=== PATIENT | female | born 1960 | race Caucasian/White ===

== ENCOUNTER → 2016-09-19 | Outpatient (CLI) | payer OTHER ==
[2016-09-19 11:08] LABS: WHITE BLOOD COUNT 9.76 10^3/uL (4.8-10.8)
[2016-09-19 11:09] LABS: BASOPHILS % (AUTO) 0.5 % (0-1); EOSINOPHILS % (AUTO) 3.2 % (0-8); HEMOGLOBIN 14.9 g/dL (12.0-16.0); IMM GRAN % (AUTO) 0.3 % (0-5); LYMPHOCYTES # (AUTO) 3.18 10*3/uL; LYMPHOCYTES % (AUTO) 32.6 % (10-50); MEAN CORPUSCULAR HEMOGLOBIN 26.9 PG (27-31); MEAN CORPUSCULAR HGB CONC 33.9 g/dL (33-37); MONOCYTES # (AUTO) 0.74 10*3/UL (0.3-0.8); MONOCYTES % (AUTO) 7.6 % (5-15); NEUTROPHILS # (AUTO) 5.45 10*3/UL; NEUTROPHILS % (AUTO) 55.8 % (50-80); RDW COEFFICIENT OF VARIATION 19.9 % (11.5-14.5); RED BLOOD COUNT 5.53 10^6/uL (4.20-5.40)
[2016-09-19 11:10] LABS: BASOPHILS # (AUTO) 0.05 10*3/UL; IMM GRAN# (AUTO) 0.03 10*3/UL; PLATELET MORPHOLOGY COMMENT NORMAL MORPHOLOGY (NORM)
== END ==
LOC: MOB LAB 10:15
DX: R71.8 Other abnormality of red blood cells (principal)
CPT/HCPCS: 36415; 85025

== ENCOUNTER 2016-11-10 05:59 | Emergency (ER) | payer OTHER ==
[2016-11-10 06:16] VITALS: RESP 16; TEMP 97.5
[2016-11-10] MEDS ORDERED: KETOROLAC 30 MG/1 ML VIAL IVP ONE (06:24)
[2016-11-10] MEDS ORDERED: Sodium Chloride 0.9% 1,000 ML PRIMARY IV ONE (06:24)
[2016-11-10] MEDS ORDERED: DEXAMETHASONE PF 10 MG/1 ML VIAL IV ONE (06:24)
[2016-11-10] MEDS ORDERED: Magnesium Sulfate 2gm (Premix) 2 GM in Premix 1 BAG IV ONE (06:24)
[2016-11-10] MEDS ORDERED: Prochlorperazine Edisylate Inj 10mg/2ml vial IVP ONE (06:24)
[2016-11-10] MEDS ORDERED: diphenhydrAMINE 50 MG/1 ML VIAL IVP ONE (06:24)
[2016-11-10 06:31] LABS: BASOPHILS # (AUTO) 0.02 10*3/UL; BASOPHILS % (AUTO) 0.2 % (0-1); EOSINOPHILS % (AUTO) 0 % (0-8); HEMATOCRIT 43.5 % (37.0-47.0); IMM GRAN % (AUTO) 0.2 % (0-5); IMM GRAN# (AUTO) 0.03 10*3/UL; LYMPHOCYTES # (AUTO) 1.58 10*3/uL; LYMPHOCYTES % (AUTO) 12.6 % (10-50); MEAN CORPUSCULAR HGB CONC 34.5 g/dL (33-37); MONOCYTES # (AUTO) 0.41 10*3/UL (0.3-0.8); MONOCYTES % (AUTO) 3.3 % (5-15); NEUTROPHILS # (AUTO) 10.47 10*3/UL; NEUTROPHILS % (AUTO) 83.7 % (50-80); RDW COEFFICIENT OF VARIATION 15.5 % (11.5-14.5); RED BLOOD COUNT 5.17 10^6/uL (4.20-5.40); WHITE BLOOD COUNT 12.51 10^3/uL (4.8-10.8)
--- NOTE | 2016-11-10 06:31 | PDOC ---
Headache HPI - General Chief Complaint: Headache Stated Complaint: "Migraine" Date Seen by Provider: 11/10/16 Time Seen by Provider: 06:25 Source: POSITIVE: Patient Exam Limitations: POSITIVE: No limitations Nurse's Notes Reviewed & Considered: Yes - History of Present Illness Initial Comments: Patient comes in today chief complaint of headache. Patient with a history of migraine headaches comes in today with headache that is minimally ongoing since Sunday. She saw her primary care physician on Sunday and was given a shot at all and initially it began to improve area yesterday she saw a foot doctor and her migraine began to worsen again. She has photophobia, nausea, vomiting, and diarrhea. She denies fever but has had chills and sweats. Body Location Affected: REPORTS: Head Timing: REPORTS: Constant Duration: <1 week Severity: Severe Quality: REPORTS: "Pain", Throbbing Associated Symptoms: REPORTS: Chills, Sweating, Nausea, Vomiting Exacerbated by: REPORTS: Light, Noise, Movement Any Prior Injuries Related to Current Complaint?: No - Patient Home Medications Home Medications: Home Medications Cranberry Pills 1 tab PO DAILY 10/05/09 Cholecalciferol (Vitamin D3) [Vitamin D3] 2 cap PO DAILY cap 09/30/13 Ondansetron [Zofran Odt] 8 mg PO Q8H #10 tab 11/04/14 Esomeprazole Magnesium [Nexium] 1 tab PO BID #180 cap 02/23/15 Albuterol Sulfate [Proventil Hfa] 1 - 2 puff INH Q4-6H #3 puff 01/26/16 Metoprolol Succinate 1 tab PO QD #90 tab 01/26/16 Tizanidine HCl 1 tab PO Q6H #360 tab 01/26/16 Promethazine HCl 1 tab PO DAILY PRN #90 tab 04/26/16 Gabapentin [Neurontin] 1 - 2 cap PO QHS PRN #180 cap 08/21/16 Sumatriptan Succinate [Imitrex] 1 - 2 tab PO q 2 hours #36 tab 09/11/16 Betamethasone/Propylene Glyc [Betamethasone Dp Aug 0.05% Oin] 45 gm TP PRN #1 each 09/19/16 Iron 1 tab PO BID #60 tab 09/20/16 Baclofen 2 tab PO QHS #180 tab 10/16/16 Hydrochlorothiazide 1 tab PO QD #90 tab 10/16/16 Venlafaxine HCl [Venlafaxine Hcl Er] 1 cap PO QD #90 cap 10/16/16 Hydrocodone Bit/Acetaminophen [[place] 5-325 Tablet] 1 tab PO q4h prn #30 tab 04/19 - Patient Allergies Allergies/Adverse Reactions: Allergies Allergy/AdvReac Type Severity Reaction Status Date / Time No Known Allergies Allergy Verified 11/10/16 06:06 Past Medical History - heen HEENT History: Denies History Cardiovascular History: Denies History Respiratory History: Denies History Gastrointestinal History: Denies History Genitourinary History: Denies History Endocrine History: Denies History Musculoskeletal History: Denies History Prosthesis or Implant: No Neurological History: Denies History Blood Disorders: Denies History History of Sexually Transmitted Diseases: No Female Reproductive History: Hysterectomy Cancer History: Denies History In Past Year Been Physically Harmed or Verbally Threatened: No History of MDRO: No History of Other Communicable Diseases: No Tobacco Use: Never Smoker Alcohol Use: Occasionally Substance Use Type: None ROS - Limitations ROS Limitations: No Limitations Constitution: REPORTS: Chills, Diaphoresis Cardiovascular: REPORTS: Denies Cardiac Symptoms Respiratory: REPORTS: Cough Non Productive Neurological: REPORTS: Headache Gastrointestinal: REPORTS: Nausea, Vomitting Endocrine: REPORTS: Denies Symptoms Musculoskeletal: REPORTS: Denies MS Symptoms Genitourinary: REPORTS: Denies Symptoms Eyes: REPORTS: Eye Pain ENT: REPORTS: Denies Symptoms Skin: REPORTS: Denies Skin Symptoms Lympathic: REPORTS: Denies Lympathic Symptoms Immunologic: POSITIVE: Denies Symptoms Psychiatric: POSITIVE: Denies Psych Symptoms Headache Exam - General Appearance General Appearance: POSITIVE: Alert, Cooperative, No Evidence of Trauma, Moderate Distress - HEENT Head / Face: POSITIVE: Atraumatic, Normal Inspection, No Facial Swelling Eyes: POSITIVE: Inspection Normal, PERRL, EOM's Intact, Eyelids Uninjured, Conjunctivae Uninjured, Sclera Normal Ears: POSITIVE: Ears Normal Inspection, Auricle Normal Nose: POSITIVE: Inspection Normal, No Apparent Trauma, Nares Normal, No CSF Leak Oropharynx: POSITIVE: External Inspection Nml, Pharynx Inspect. Nml, Airway Intact, Voice Normal, Moist Mucous Membranes, No Oral Injury, Lips Normal, Gums Normal, No Drooling, No Thrush Dental: POSITIVE: No Dental Injury - Pupil Size Pupil Size: 4 mm: Bilateral - Neck Neck: POSITIVE: Normal Inspection - Respiratory / CVS Respiratory / CVS: POSITIVE: Chest Non-Tender, No Respiratory Distress, Heart Sounds Normal, Regular Rate/Rhythm, Breath Sounds Normal - Abdomen Abdomen: Soft: (All Quadrants), Normal Bowel Sounds: (All Quadrants), Denies Tenderness: (All Quadrants) - Skin Skin: POSITIVE: Intact, Normal Palpation - Extremities Extremity: Non-Tender: (All Extremities), Normal ROM: (All Extremities), Normal Inspection: (All Extremities) - Neuro / Psych Higher Functions: POSITIVE: Alert, Oriented x3, Normal Speech, Mood Appropriate , Affect Appropriate Cranial Nerves: POSITIVE: Normal As Tested, No Evidence of Acute CVA Cerebellar: POSITIVE: Normal As Tested Sensorimotor: POSITIVE: No Motor Deficits, No Sensory Deficits Reflexes: Patellar (R): 4+, Patellar (L): 4+, Radial (R): 3+, Radial (L): 3+ Headache Progress - Results Reviewed by me Lab Results Reviewed: Yes Lab Results:: Laboratory Results 11/10/16 Range/Units 05:55 WBC 12.51 H (4.8-10.8) 10^3/uL RBC 5.17 (4.20-5.40) 10^6/uL Hgb 15.0 (12.0-16.0) g/dL Hct 43.5 (37.0-47.0) % MCV 84.1 (81-99) FL MCH 29.0 (27-31) PG MCHC 34.5 (33-37) g/dL RDW Std Deviation 46.9 (39-50) fL RDW Coeff of Deb 15.5 H (11.5-14.5) % Plt Count 309 (140-350) 10*3/uL MPV 10.0 (7.4-12.2) FL Immature Gran % (Auto) 0.2 (0-5) % Neut % (Auto) 83.7 H (50-80) % Lymph % (Auto) 12.6 (10-50) % [place] % (Auto) 3.3 L (5-15) % Eos % (Auto) 0 (0-8) % Baso % (Auto) 0.2 (0-1) % Immature Gran # (Auto) 0.03 10*3/UL Neut # (Auto) 10.47 10*3/UL Lymph # (Auto) 1.58 10*3/uL [place] # (Auto) 0.41 (0.3-0.8) 10*3/UL Eos # (Auto) 0 10*3/UL Baso # (Auto) 0.02 10*3/UL WBC Morphology Comment Normal morphology (NORM) Plt Morphology Comment Normal morphology (NORM) RBC Morph Comment Normal morphology (NORM) Sodium 136 (135-145) meq/L Potassium 4.3 (3.8-5.2) meq/L Chloride 98 (98-112) meq/L Carbon Dioxide 26 (23-33) meq/L Anion Gap 12 (5-20) BUN 20 (7-22) mg/dL Creatinine 0.7 (0.50-1.20) mg/dL Estimated GFR > 60 (>60 ml/min/1.73m(2)) BUN/Creatinine Ratio 28.57 H (6-20) Glucose 280 H (78-110) mg/dL Calculated Osmolality 294.0 H (267-292) mOsm/kg Calcium 9.8 (8.7-10.7) mg/dL Magnesium 1.8 (1.6-2.4) mg/dL Total Bilirubin 1.0 (0.3-1.2) mg/dL AST 87 H (8-39) IU/L ALT 81 H (9-52) IU/L Alkaline Phosphatase 150 H (38-126) IU/L Total Protein 8.0 (6.1-8.0) g/dL Albumin 4.2 (3.5-4.8) g/dL Globulin 3.8 (2.50-4.10) g/dL Albumin/Globulin Ratio 1.10 L (1.3-2.0) mg/g TSH 0.668 (0.2700-4.2000) uIU/mL - Patient's Progress Pain Medication Addressed: POSITIVE: Yes Re-Examine Time:: 07:31 Status: POSITIVE: Improved MDM / ED Course: Patient was examined, an IV started, blood drawn and sent to the lab for studies. ER course: Patient received a liter of normal saline, dexamethasone, Toradol, Benadryl, magnesium, Compazine. Her headache significantly improved. Findings: Glucose is elevated at 280. White count is elevated just over 12. Hemoglobin A1c is pending. Assessment: Migraine headache improved. New-onset diabetes. Plan: Discharge home, follow up later today with primary care physician. - Consult Counseled: POSITIVE: Patient, RE: Lab Results, RE: DX, RE: Need for F/U Patient Care Time - Estimated PCT Patient Care Time (In Minutes): 30 Vital Signs - Recent Vital Signs Vital Signs: Vital Signs (Last 8 hours) Temp Pulse Resp BP Pulse Ox 11/10/16 06:08 97.5 F 86 16 132/100 92 - VS Reviewed Vital Signs Reviewed: Yes Discharge Clinical Impression: Migraine, New onset type 2 diabetes mellitus Condition: Stable Patient Instructions Given at Discharge: Migraine Headache (ED), Type 2 Diabetes in Adults (ED)
[2016-11-10 06:36] LABS: ASPARTATE AMINO TRANSFERASE 87 IU/L (8-39); BLOOD UREA NITROGEN 20 mg/dL (7-22); BUN/CREATININE RATIO 28.57 (6-20); CALCIUM 9.8 mg/dL (8.7-10.7); CHLORIDE 98 meq/L (98-112); CREATININE 0.7 mg/dL (0.50-1.20); EST GLOMERULAR FILTRATION > 60 (>60 ml/min/1.73m(2)); GLUCOSE 280 mg/dL (78-110); MAGNESIUM 1.8 mg/dL (1.6-2.4); PLATELET MORPHOLOGY COMMENT NORMAL MORPHOLOGY (NORM); POTASSIUM 4.3 meq/L (3.8-5.2); SODIUM 136 meq/L (135-145)
[2016-11-10 07:43] LABS: HEMOGLOBIN A1C 8.47 % (4.2-6.0); MEAN BLOOD GLUCOSE (CALC) 196.051 mg/dL
== END 2016-11-10 07:50 | disposition home or self-care (01) ==
LOC: ER 05:59
DX: G43.009 Migraine without aura, not intractable, without status migrainosus (principal); R11.2 Nausea with vomiting, unspecified; R19.7 Diarrhea, unspecified; E11.9 Type 2 diabetes mellitus without complications
CPT/HCPCS: 80053; 83036; 83735; 84443; 85025; 96361; 96365; 96375; 99282; 99283; J1200; J1885; J0780; J1100; J3475; J7030

== ENCOUNTER → 2016-11-16 | Outpatient (CLI) | payer OTHER ==
--- NOTE | 2016-11-16 09:28 | DI ---
MRI CERVICAL SPINE SCAN, 11/16/2016 7:57 AM: Clinical History: C8 nerve root cervical radiculopathy. Previous Exam: None. Sequences: Sagittal T1and T2 weighted. Axial T2 PLUS and FE 3D DUAL. Coronal T1 scans through the upp er cervical spine. The vertebral bodies are of normal height and size. There is severe C5-6 disc space narrowing with mo derate narrowing at C4-5 and C6-7. All cervical disc spaces show desiccation change. Both cerebellar tonsils descend below the foramen magnum and this is demonstrated on the coronal slices through the u pper cervical spine. The right cerebellar tonsil descends approximately 5-6 mm below the foramen magn um in the left cerebellar tonsil descends about 3 mm below the foramen magnum. This pattern constitut es an Arnold-Chiari type I malformation. The cervical cord is normal. The C2-3 and C3-4 disc spaces a re normal. C4-5 has a minimally bulging but not herniated disc without canal or neural foraminal sten osis. C5-6 has a more prominent bulging but not herniated disc. There is no canal stenosis but there is bilateral neural foraminal stenosis. The C6-7 through T4-5 disc spaces are normal. Readin. There are bulging but not herniated discs without canal stenosis at C4-5 and C5-6. There is no ne ural foraminal stenosis at C4-5 and there is mild bilateral neural foraminal stenosis at C5-6. 2. The disc spaces at C2-3, C3-4, and from C6-7 through T4-5 are normal. 3. There is an Arnold-Chiari type I malformation. The right cerebellar tonsil descends 5-6 mm and th e left cerebellar tonsil descends 3 mm below the foramen magnum.
== END ==
LOC: MRI 07:50
DX: M54.12 Radiculopathy, cervical region (principal); M47.22 Other spondylosis with radiculopathy, cervical region; G93.5 Compression of brain
CPT/HCPCS: 72141

== ENCOUNTER → 2016-12-21 | Outpatient (CLI) | payer OTHER ==
--- NOTE | 2016-12-21 21:23 | DI ---
CERVICAL SPINE SERIES, 12/21/2016 11:19 AM: Clinical History: Cervical pain. Previous Exam: 04/26/2011. Upright AP and lateral and upright lateral flexion and extension views are submitted. The vertebral b odies are normal in height and size. Disc space narrowing is present at C4-5 through C6-7. In the anabel tral position, there is posterior subluxation of C5 on C6 by 1-2 mm. No instability is noted at C5-6 with flexion and extension. However, with extension there is posterior subluxation of C4 on C5 by 1-2 mm and this disc space has normal alignment when in flexion and in the neutral position indicating m otion. The lateral masses are normal. C1 articulates normally with C2 and the occiput. Prevertebral s oft tissue planes are normal. Readin. There is disc space narrowing at C4-5. With extension there is posterior subluxation of C4 on C5 by 1-2 mm indicating motion at this level. 2. There is disc space narrowing at C5-6 and C6-7 with posterior subluxation of C5 on C6 by 1-2 mm. There is no motion noted at C5-6 with flexion and extension.
== END ==
LOC: RAD 12:43
PROVIDERS: ATTEND Neurological Surgery
DX: M54.2 Cervicalgia (principal); M48.02 Spinal stenosis, cervical region; M43.5X2 Other recurrent vertebral dislocation, cervical region
CPT/HCPCS: 72050

== ENCOUNTER → 2017-01-17 | Outpatient (CLI) | payer OTHER ==
[2017-01-17 08:17] LABS: CALCIUM 9.3 mg/dL (8.7-10.7); EST GLOMERULAR FILTRATION > 60 (>60 ml/min/1.73m(2))
--- NOTE | 2017-01-17 12:09 | DI ---
MRI BRAIN W/WO DILLON,01/17/2017 7:53 AM: Clinical History: Intractable chronic migraines. Previous Exam: None at this facility. Findings: Multiplanar MR images are obtained through the brain with and without contrast. Ventricles and other CSF containing spaces are normal and symmetric. There are multiple scattered are as of increased T2 and FLAIR signal within the periventricular and subcortical white matter. There is no evidence of abnormally restricted diffusion. The intraorbital structures and paranasal sinuses are unremarkable. Post enhanced images demonstrate no evidence of abnormal enhancement. Limited evaluation of the ambler of [place] is unremarkable. Impression: Multiple scattered areas of increased FLAIR and T2 signal most consistent with small vessel ischemic changes.
== END ==
LOC: MRI 07:45
PROVIDERS: ATTEND Psychiatry & Neurology Neurology
DX: G43.719 Chronic migraine without aura, intractable, without status migrainosus (principal); I99.8 Other disorder of circulatory system
CPT/HCPCS: 36415; 70553; 80048

== ENCOUNTER → 2017-03-22 | Outpatient (CLI) | payer OTHER ==
--- NOTE | 2017-03-24 08:58 | DI ---
LEFT FOOT, 03/22/2017 3:15 PM: Clinical History: Left foot pain. Previous Exam: None at this facility. 3 weightbearing views are submitted. There is no acute soft tissue, osseous, or joint abnormality. Reading: Normal left foot exam.
== END ==
LOC: MOB RAD 16:18
PROVIDERS: ATTEND Podiatrist Foot & Ankle Surgery
DX: M79.672 Pain in left foot (principal); M21.6X2 Other acquired deformities of left foot; G57.92 Unspecified mononeuropathy of left lower limb
CPT/HCPCS: 73630

== ENCOUNTER → 2017-04-16 | Outpatient (CLI) | payer OTHER ==
[2017-04-16 14:48] LABS: HEMATOCRIT 46.3 % (37.0-47.0); HEMOGLOBIN 16.4 g/dL (12.0-16.0); MEAN CORPUSCULAR HEMOGLOBIN 30.1 PG (27-31); MEAN CORPUSCULAR HGB CONC 35.4 g/dL (33-37); MEAN CORPUSCULAR VOLUME 85.1 FL (81-99); MEAN PLATELET VOLUME 10.7 FL (7.4-12.2); RED BLOOD COUNT 5.44 10^6/uL (4.20-5.40)
[2017-04-16 14:58] LABS: BUN/CREATININE RATIO 24.61 (6-20); CALCIUM 9.2 mg/dL (8.7-10.7); SERUM ALBUMIN 4.3 g/dL (3.5-4.8)
[2017-04-16 15:07] LABS: BAND NEUTROPHILS % 13 % (0-10); BASOPHILS % (MANUAL) 0 % (0-1); EOSINOPHILS % (MANUAL) 0 % (0-8); LYMPHOCYTES % (MANUAL) 7 % (10-50); MONOCYTES % (MANUAL) 4 % (0-12); NEUTROPHILS % (MANUAL) 76 % (50-80); PLATELET MORPHOLOGY COMMENT NORMAL MORPHOLOGY (NORM); RBC MORPHOLOGY COMMENT NORMAL MORPHOLOGY (NORM); WBC MORPHOLOGY COMMENT NORMAL MORPHOLOGY (NORM)
== END ==
LOC: MOB LAB 14:18
PROVIDERS: ATTEND Physician Assistant Medical
DX: R11.2 Nausea with vomiting, unspecified (principal); R53.81 Other malaise; R10.84 Generalized abdominal pain
CPT/HCPCS: 36415; 80053; 85007; 87088

== ENCOUNTER → 2017-04-18 | Outpatient (CLI) | payer OTHER ==
--- NOTE | 2017-04-18 13:09 | DI ---
History: Cough Comparison: None within the last 5 years Lungs are clear. There is no infiltrate or pleural effusion. Lungs are fully expanded Heart size normal Pulmonary vasculature normal Impression Unremarkable plain film study of the chest.
== END ==
LOC: MOB RAD 12:09
DX: R05 Cough (principal)
CPT/HCPCS: 71020

== ENCOUNTER → 2017-04-20 | Outpatient (CLI) | payer OTHER ==
[2017-04-20 14:25] LABS: BASOPHILS # (AUTO) 0.14 10*3/UL; BASOPHILS % (AUTO) 1.3 % (0-1); EOSINOPHILS % (AUTO) 9.5 % (0-8); HEMATOCRIT 40.1 % (37.0-47.0); HEMOGLOBIN 14.3 g/dL (12.0-16.0); LYMPHOCYTES # (AUTO) 3.31 10*3/uL; MEAN CORPUSCULAR HGB CONC 35.7 g/dL (33-37); MEAN CORPUSCULAR VOLUME 86.8 FL (81-99); MEAN PLATELET VOLUME 10.3 FL (7.4-12.2); MONOCYTES % (AUTO) 7.6 % (5-15); NEUTROPHILS # (AUTO) 5.03 10*3/UL; NEUTROPHILS % (AUTO) 47.6 % (50-80); RED BLOOD COUNT 4.62 10^6/uL (4.20-5.40)
[2017-04-20 14:28] LABS: PLATELET MORPHOLOGY COMMENT NORMAL MORPHOLOGY (NORM); RBC MORPHOLOGY COMMENT NORMAL MORPHOLOGY (NORM); WBC MORPHOLOGY COMMENT NORMAL MORPHOLOGY (NORM)
== END ==
LOC: MOB LAB 13:26
DX: R10.84 Generalized abdominal pain (principal); R05 Cough; R11.2 Nausea with vomiting, unspecified; B99.9 Unspecified infectious disease
CPT/HCPCS: 36415; 85025

== ENCOUNTER → 2017-04-24 | Outpatient (CLI) | payer OTHER ==
[2017-04-24 17:20] LABS: CALCIUM 9.8 mg/dL (8.7-10.7); SERUM ALBUMIN 3.9 g/dL (3.5-4.8)
== END ==
LOC: MOB LAB 15:44
DX: R10.84 Generalized abdominal pain (principal)
CPT/HCPCS: 36415; 80053; 82150; 83690

== ENCOUNTER 2017-04-30 14:45 | Inpatient (IN) ==
[2017-04-30] MEDS: ONDANSETRON 4 MG/2 ML VIAL IVP ONE ×2 (15:18→21:59)
--- NOTE | 2017-04-30 15:20 | PDOC ---
Abdomen/Flank HPI - General Chief Complaint: General Medical Stated Complaint: ill Date Seen by Provider: 04/30/17 Time Seen by Provider: 15:12 Source: POSITIVE: Patient, RN/MD (Dr. Barkley, PCP) Exam Limitations: POSITIVE: No limitations Nurse's Notes Reviewed & Considered: Yes - History of Present Illness Initial Comments: Patient comes in today with a chief complaint of nausea vomiting and diarrhea. I was contacted by the patient's primary care physician, Dr. Barkley, who advised that the patient has had 3 weeks of refractory nausea vomiting and diarrhea. Approximately 3 weeks ago she had findings of elevated bilirubin to 2.5 and elevated creatinine. Recheck of her bilirubin creatinine last week showed a return to more normal numbers. Her LFTs continued to be chronically elevated. Her amylase was normal, lipase was 325. History of chronic diarrhea however she just finished antibiotics for strep and a cough. Patient is diabetic, and Dr. Barkley recently stopped several of her meds including metformin. Presently patient denies any headache, no chest pain or shortness of breath, she does have nausea vomiting and diarrhea. Denies any hematuria or dysuria, no rashes. Patient states she has had fever 201.2 with associated chills and sweats. Patient arrived at Dr. Barkley's office this afternoon for her scheduled appointment and asked to be sent to the emergency department because she felt so bad. Body Location Affected: REPORTS: Abdomen Timing: REPORTS: Constant Duration: >1 week (Approximately 3 weeks) Severity: Moderate Quality: REPORTS: Cramping, "Pain" Abdominal Pain Onset Location: REPORTS: Generalized abdomen Abdominal Pain Radiation: REPORTS: RUQ, Epigastric Context: REPORTS: None Modifying Factors: improves with: Nothing Associated Symptoms: REPORTS: Chills, Diaphoresis, Fever Similar Symptoms Previously: Yes Recent Care Received: REPORTS: Recently Seen Any Prior Injuries Related to Current Complaint?: No - Patient Home Medications Home Medications: Home Medications Cranberry Pills 1 tab PO DAILY 10/05/09 Cholecalciferol (Vitamin D3) [Vitamin D3] 2 cap PO DAILY cap 09/30/13 Ondansetron [Zofran Odt] 8 mg PO Q8H #10 tab 11/04/14 Esomeprazole Magnesium [Nexium] 1 tab PO BID #180 cap 02/23/15 Albuterol Sulfate [Proventil Hfa] 1 - 2 puff INH Q4-6H #3 puff 05/25/16 Metoprolol Succinate 1 tab PO QD #90 tab 01/26/16 Sumatriptan Succinate [Imitrex] 1 - 2 tab PO q 2 hours #36 tab 09/11/16 Iron 1 tab PO BID #60 tab 09/20/16 Blood Sugar Diagnostic [Freestyle Lite Strips] 1 strip IN QD #50 strip 11/16/16 Blood-Glucose Meter [Freestyle Lite Meter] 1 each ONCE #1 unit 11/16/16 Lancets [Freestyle Lancets] 1 each MC QD #50 each 11/16/16 Betamethasone/Propylene Glyc [Betamethasone Dp Aug 0.05% Oin] 45 gm TP PRN #1 each 01/08/17 Hydrochlorothiazide 1 tab PO QD #90 tab 02/08/17 Promethazine HCl 1 tab PO QD PRN #45 tab 02/08/17 Tizanidine HCl 1 tab PO Q6H #360 tab 02/08/17 Venlafaxine HCl [Venlafaxine Hcl Er] 1 cap PO QD #90 cap 02/08/17 Gabapentin [Neurontin] 5 cap PO QHS #150 cap 02/20/17 Hydrocodone Bit/Acetaminophen [[place] 5-325 Tablet] 1 tab PO q4h prn #30 tab Baclofen 2 tab PO QHS #180 tab 04/04/17 Cefuroxime Axetil [Cefuroxime] 500 mg PO BID #20 tab 04/16/17 Ondansetron [Zofran Odt] 8 mg PO TID #9 tab 04/16/17 Albuterol Neb Soln 0.083% 1 vial INH Q4-6HRSPRN #120 vial 04/20/17 Guaifenesin/Codeine Phos [Cheratussin Ac Syrup] 10 ml PO Q4-6HRSPRN #120 ml predniSONE Tab [Deltasone Tab] 2 tab PO DAILY #10 tab 04/20/17 predniSONE Tab [Deltasone Tab] 0.5 - 1 tab PO QD #14 tab 04/25/17 - Patient Allergies Allergies/Adverse Reactions: Allergies Allergy/AdvReac Type Severity Reaction Status Date / Time No Known Allergies Allergy Verified 04/30/17 15:32 Past Medical History - heen HEENT History: Denies History Cardiovascular History: Denies History Respiratory History: Denies History Gastrointestinal History: Denies History Genitourinary History: Denies History Endocrine History: Type 2 Diabetes (oral) Musculoskeletal History: Denies History Prosthesis or Implant: No Neurological History: Denies History Blood Disorders: Denies History Psychiatric History: Denies History History of Sexually Transmitted Diseases: No Cancer History: Denies History In Past Year Been Physically Harmed or Verbally Threatened: No History of MDRO: No History of Other Communicable Diseases: No Tobacco Use: Never Smoker Alcohol Use: Occasionally Substance Use Type: None Previous Surgical History: Yes Type / Date of Surgery: hysterectomy in 1981, lapchole. Anesthesia Reactions: No Significant Family History: No pertinent family hx ROS - Limitations ROS Limitations: No Limitations Constitution: REPORTS: Chills, Fever, Diaphoresis Cardiovascular: REPORTS: Denies Cardiac Symptoms Respiratory: REPORTS: Denies Resp Symptoms Neurological: REPORTS: Denies Neuro Symptoms Gastrointestinal: REPORTS: Abdominal Pain, Nausea, Vomitting, Diarrhea Endocrine: REPORTS: Fatigue, Elevated Glucose Musculoskeletal: REPORTS: Denies MS Symptoms Genitourinary: REPORTS: Denies Symptoms Eyes: REPORTS: Denies Symptoms ENT: REPORTS: Denies Symptoms Skin: REPORTS: Denies Skin Symptoms Lympathic: REPORTS: Denies Lympathic Symptoms Immunologic: POSITIVE: Denies Symptoms Psychiatric: POSITIVE: Denies Psych Symptoms Abdominal/Flank Pain PE - General Appearance General Appearance: POSITIVE: Alert, Cooperative, No Evidence of Trauma, Moderate Distress - HEENT HEENT: POSITIVE: Head Inspection Nml, Eyes Inspection Nml, Ears Inspection Nml, Nose Inspection Nml, Oral/Dental Inspect. Nml, Pharynx Inspect. Nml, PERRL, EOMI - Neck Neck: POSITIVE: Normal Inspection, No Apparent Injury - Respiratory Respiratory: POSITIVE: No Respiratory Distress, Breath Sounds Normal, Chest Non- Tender - Cardiovascular Cardiovascular: POSITIVE: Heart Sounds Normal, Equal Pulses, Strong Pulses, Tachycardia - Chest Chest: POSITIVE: Non Tender - Abdomen Abdomen: Soft: (All Quadrants), Normal Bowel Sounds: (All Quadrants), Tenderness Noted: (RUQ), (LUQ), Distention: (All Quadrants), Guarding: (RUQ) - Back Back: POSITIVE: Normal Inspection - Skin Skin: POSITIVE: Intact, Normal For Race, Warm, Dry, No Rash - Extremities Extremity: Non-Tender: (All Extremities), Normal ROM: (All Extremities), Normal Inspection: (All Extremities), Pelvis Stable: (All Extremities) - Neurological Neurological: POSITIVE: Oriented X3, global marketing specialist Normal As Tested, Motor Normal, Sensation Normal, 5, 6 - Psychological Psychiatric: POSITIVE: Affect Appropriate, Mood Appropriate Abdomen Progress - Results Reviewed by me Xrays/CTs/US Reviewed by me: Yes Discussed with Radiologist: Yes Lab Results Reviewed: Yes Lab Results:: Laboratory Results 04/30/17 Range/Units 15:20 WBC 14.78 H (4.8-10.8) 10^3/uL RBC 5.52 H (4.20-5.40) 10^6/uL Hgb 16.3 H (12.0-16.0) g/dL Hct 47.8 H (37.0-47.0) % MCV 86.6 (81-99) FL MCH 29.5 (27-31) PG MCHC 34.1 (33-37) g/dL RDW Std Deviation 47.3 (39-50) fL RDW Coeff of Deb 14.9 H (11.5-14.5) % Plt Count 360 H (140-350) 10*3/uL MPV 9.9 (7.4-12.2) FL Immature Gran % (Auto) 0.4 (0-5) % Neut % (Auto) 85.6 H (50-80) % Lymph % (Auto) 11.0 (10-50) % [place] % (Auto) 2.6 L (5-15) % Eos % (Auto) 0.1 (0-8) % Baso % (Auto) 0.3 (0-1) % Immature Gran # (Auto) 0.06 10*3/UL Neut # (Auto) 12.65 10*3/UL Lymph # (Auto) 1.62 10*3/uL [place] # (Auto) 0.39 (0.3-0.8) 10*3/UL Eos # (Auto) 0.02 10*3/UL Baso # (Auto) 0.04 10*3/UL WBC Morphology Comment Normal morphology (NORM) Plt Morphology Comment Normal morphology (NORM) RBC Morph Comment Normal morphology (NORM) Sodium 134 L (135-145) meq/L Potassium 4.5 (3.8-5.2) meq/L Chloride 97 L (98-112) meq/L Carbon Dioxide 24 (23-33) meq/L Anion Gap 13 (5-20) BUN 19 (7-22) mg/dL Creatinine 0.9 (0.50-1.20) mg/dL Estimated GFR > 60 (>60 ml/min/1.73m(2)) BUN/Creatinine Ratio 21.11 H (6-20) Glucose 353 H (78-110) mg/dL Calculated Osmolality 293.0 H (267-292) mOsm/kg Calcium 10.0 (8.7-10.7) mg/dL Magnesium 2.2 (1.6-2.4) mg/dL Total Bilirubin 0.9 (0.3-1.2) mg/dL AST 51 H (8-39) IU/L ALT 119 H (9-52) IU/L Alkaline Phosphatase 133 H (38-126) IU/L C-Reactive Protein 1.5 H (0.0-0.9) mg/dL Total Protein 7.7 (6.1-8.0) g/dL Albumin 4.4 (3.5-4.8) g/dL Globulin 3.4 (2.50-4.10) g/dL Albumin/Globulin Ratio 1.20 L (1.3-2.0) mg/g Amylase 80 (30-110) U/L Lipase 387 H (23-300) IU/L - Patient's Progress Re-examine Time: 16:53 Status: POSITIVE: Improved - Consult Consult (If Yes, Name of Consulting MD & Time Called): Yes (Dr. Huff, 16:52) Consulting MD will see pt:: POSITIVE: [facility] [place] Admit Counseled: POSITIVE: Patient, RE: Lab Results, RE: Radiology Results, RE: DX Patient Care Time - Estimated PCT Patient Care Time (In Minutes): 60 Vital Signs - Recent Vital Signs Vital Signs: Vital Signs (Last 8 hours) Temp Pulse Resp BP Pulse Ox 04/30/17 14:45 96.8 F 82 16 129/92 93 - VS Reviewed Vital Signs Reviewed: Yes Discharge Clinical Impression: Refractory nausea and vomiting Discharge Disposition: Admit to Inpatient Condition: Stable Date Decision to Admit to Inpatient: 04/30/17 Time Decision to Admit to Inpatient: 16:54
[2017-04-30 15:26] LABS: BASOPHILS # (AUTO) 0.04 10*3/UL; BASOPHILS % (AUTO) 0.3 % (0-1); EOSINOPHILS # (AUTO) 0.02 10*3/UL; EOSINOPHILS % (AUTO) 0.1 % (0-8); Hematocrit [HCT] 47.8 % (37.0-47.0); Hemoglobin [HGB] 16.3 g/dL (12.0-16.0); LYMPHOCYTES # (AUTO) 1.62 10*3/uL; MEAN CORPUSCULAR HEMOGLOBIN 29.5 PG (27-31); MEAN CORPUSCULAR HGB CONC 34.1 g/dL (33-37); MEAN CORPUSCULAR VOLUME 86.6 FL (81-99); MEAN PLATELET VOLUME 9.9 FL (7.4-12.2); MONOCYTES # (AUTO) 0.39 10*3/UL (0.3-0.8); MONOCYTES % (AUTO) 2.6 % (5-15); NEUTROPHILS # (AUTO) 12.65 10*3/UL; NEUTROPHILS % (AUTO) 85.6 % (50-80); RED BLOOD COUNT 5.52 10^6/uL (4.20-5.40)
[2017-04-30] MEDS: MORPHINE SULFATE 4 MG/1 ML IVP ONE ×2 (15:27→21:58)
[2017-04-30] MEDS: Sodium Chloride 0.9% 1,000 ML PRIMARY IV ONE ×3 (15:30→23:47)
[2017-04-30 15:35] LABS: PLATELET MORPHOLOGY COMMENT NORMAL MORPHOLOGY (NORM); RBC MORPHOLOGY COMMENT NORMAL MORPHOLOGY (NORM); WBC MORPHOLOGY COMMENT NORMAL MORPHOLOGY (NORM)
[2017-04-30 15:40] LABS: BLOOD UREA NITROGEN 19 mg/dL (7-22); BUN/CREATININE RATIO 21.11 (6-20); MAGNESIUM 2.2 mg/dL (1.6-2.4); SERUM ALBUMIN 4.4 g/dL (3.5-4.8)
[2017-04-30 16:16] LABS: LIPASE 387 IU/L (23-300)
[2017-04-30] MEDS ORDERED: MORPHINE SULFATE 4 MG/1 ML IVP ONE (16:57)
--- NOTE | 2017-04-30 17:02 | EKG ---
[address] [address] Measurements Intervals [place] Rate: 79 P: 42 MI: 146 QRS: 52 QRSD: 99 T: 47 QT: 373 QTc: 408 Interpretive Statements SINUS RHYTHM No previous ECG available for comparison Electronically Signed On 05-01-17 11:45:12 MDT by Charles Marie MD [email or web address]
[2017-04-30 17:04] LABS: BILIRUBIN,URINE NEGATIVE (NEG); CLARITY,URINE CLEAR (CLEAR); COLOR,URINE YELLOW; GLUCOSE, URINE (UA) 500 mg/dL (NEG); NITRATE,URINE NEGATIVE (NEG); OCCULT BLOOD,URINE Trace-intact (NEG); PH,URINE 6.5 (5.0-8.5); PROTEIN,URINE NEGATIVE (NEG); UROBILINOGEN,URINE 0.2 EU/dL (0.2)
[2017-04-30 17:12] LABS: URINE SAMPLE TYPE VOIDED SPECIMEN
--- NOTE | 2017-04-30 17:27 | DI ---
RIGHT UPPER QUADRANT ULTRASOUND, 04/30/2017 3:10 PM: Clinical History: Right upper quadrant pain. Status post cholecystectomy. Previous Exam: None at this facility. Technique: Scans are performed through the right upper quadrant in multiple projections. The patient is status post cholecystectomy. The common bile duct measures 6 mm. Only the body of the pancreas could be visualized and that structure is normal and that portion. There is hepatomegaly and the liver measures 18.4 cm. There is increased echogenicity with decreased through transmission cons istent with fatty infiltration. The right kidney, IVC, and aorta are normal. Readin. Hepatomegaly with fatty infiltration. 2. The right kidney and IVC and aorta are normal. The very limited views of the body of the pancreas are also normal.
[2017-04-30] MEDS ORDERED: LIDOCAINE W/ SODIUM BICARB 0.5 ML SYR SUBD PRN (18:44)
[2017-04-30] MEDS ORDERED: ALBUTEROL SULFATE 2.5 MG/3 ML NEB PRN (18:44)
[2017-04-30] MEDS ORDERED: tiZANidine Tab 4 MG TAB PO SCH (18:44)
[2017-04-30] MEDS ORDERED: HYDROmorphone 2 MG/1 ML IVP PRN (18:44)
--- NOTE | 2017-04-30 18:47 | DI ---
CT ABDOMEN SCAN WITH IV CONTRAST, 04/30/2017 3:10 PM : Clinical History: Abdominal pain. Nausea, vomiting, and diarrhea. Previous Exam: None at this facility. Comparison is made with a previous study from [facility] [place] [place] dated 10/28/2008. Scans are performed from the lower lung bases through the liver and kidneys with IV contrast. 75 ml o f Isovue 300 was injected IV. No oral or rectal contrast was ordered. The lung bases are clear. There is hepatomegaly. Small low-density lesions are present in the inferio r aspect of the right lobe of the liver consistent with small cysts ranging up to 10 mm in diameter. The liver is of lower density than normal consistent with fatty infiltration. The patient is status p ost cholecystectomy and the common bile duct measures 8-9 mm in diameter. There is no abnormality of the spleen, pancreas, and adrenal glands. Both kidneys are normal in size, shape, position and contou r. There is no hydronephrosis or hydroureter. No renal or ureteral calculi are present. There are no abnormal retrocrural or periaortic nodes. No ascites is present. READIN. Hepatomegaly with fatty infiltration. 2. The remainder of the examination is normal. CT PELVIS SCAN WITH IV CONTRAST, 04/30/2017 3:10 PM: Clinical History: See above. Previous Exam: None at this facility. Scans are performed from just superior to the umbilicus to the symphysis pubis with IV contrast. This is the same bolus of contrast used for the CT scans of the abdomen. Scans through the lower abdomen and pelvis show no masses or abnormal fluid collections. There is no adenopathy. The appendix is normal. The mid small bowel has loops filled with fluid and is not dilate d. There are no air-fluid levels. The proximal and distal small bowel are completely decompressed. Th e colon has semisolid stool throughout. No inflammatory bowel changes are noted. There are no hernias . The patient is status post hysterectomy and bilateral salpingo-oophorectomy. READING: Normal CT scan of the pelvis.
[2017-04-30] MEDS ORDERED: SUMAtriptan Tab 25 MG TAB PO PRN (19:00)
[2017-04-30] MEDS ORDERED: HYDROCORTISONE 1% CREAM - 28.35 GM TOPICAL PRN (19:59)
--- NOTE | 2017-04-30 20:17 | PDOC ---
History and Physical - History of Present Illness Date and Time of Service: 04/30/2017, 2014 Chief Complaint: Abdominal pain History of Present Illness: This very pleasant 56-year-old female with a recent diagnosis of diabetes mellitus type II, Ozbtylq-Hwabi-Rzjlx disease, asthma, sleep apnea, GERD, nonalcoholic steatohepatitis, and recent diagnosis of strep pharyngitis. She presents today with a complaint of abdominal pain that is generalized, and similarly a little worse around the left kidney. She states that she's had fevers, continued problems with cough, and intermittent nausea and vomiting. Ultrasound and CT scan of the abdomen and pelvis were done without any significant findings. Patient did feel a little better with pain medications in the emergency room. She states that Phenergan with codeine did help her cough. Despite being on antibiotics, she still has trace hematuria in the urine and she did have some trace proteinuria on urinalysis done at the same time as her strep pharyngitis diagnosis. She's been on close to 10 days of antibiotics, including cefuroxime. Metformin was recently stopped to try and alleviate the symptoms of nausea and vomiting and diarrhea. She's never had anything quite like this before. Thus far she does not feel like she is getting much better although she does deny sore throat tonight. She does have some anterior cervical lymphadenopathy. She complains of increased joint pain as well. She complained of headaches as well. She states her urine is been normal colored and does not appear coffee colored. Past Medical History Medical History: 1. GERD. 2. Hmhmjax-Jglbl-Qsyms disease. 3. Asthma. 4. Nonalcoholic status hepatitis, stage II by biopsy in 2006. 5. Hypothyroidism. 6. Depression. 7. Recently diagnosed diabetes mellitus type II Surgical History: 1. History of January 2005. 2. Bilateral subconjunctival oophorectomy in 2010. 3. Tonsillectomy. 4. Cholecystectomy in 2010. 5. Sinus surgery 2. 6. Right foot nerve release. 7. Hold for biopsy done in 2008. Subacute spongiotic dermatitis. Pertinent Family History: Significant for diabetes and pancreatic cancer. Past Social History: , lives in [place]. Has 2 children. Does not smoke personally but admits to secondhand smoke exposure. No alcohol abuse. Tobacco Use: Never Smoker Substance Use Type: None Alcohol Use: Rarely Medication / Allergies Home Medications: Home Medications Medication Instructions Recorded Confirmed Type Cranberry Pills 1 tab PO DAILY 10/05/09 04/30/17 History Cholecalciferol (Vitamin D3) 2 cap PO DAILY cap 09/30/13 04/30/17 History [Vitamin D3] Albuterol Sulfate [Proventil Hfa] 1 - 2 puff INH Q4-6H #3 puff 01/26/16 Clinic Metoprolol Succinate 1 tab PO QD #90 tab 01/26/16 04/30/17 Clinic Sumatriptan Succinate [Imitrex] 1 - 2 tab PO q 2 hours #36 tab 09/11/16 Clinic Iron 1 tab PO BID #60 tab 09/20/16 04/30/17 Clinic Blood Sugar Diagnostic [Freestyle 1 strip IN QD #50 strip 11/16/16 04/30/17 Clinic Lite Strips] Blood-Glucose Meter [Freestyle 1 each MC ONCE #1 unit 11/16/16 04/30/17 Clinic Lite Meter] Lancets [Freestyle Lancets] 1 each MC QD #50 each 11/16/16 04/30/17 Clinic Betamethasone/Propylene Glyc 45 gm TP PRN #1 each 01/08/17 04/30/17 Clinic [Betamethasone Dp Aug 0.05% Oin] Hydrochlorothiazide 1 tab PO QD #90 tab 02/08/17 04/30/17 Clinic Promethazine HCl 1 tab PO QD PRN #45 tab 02/08/17 04/30/17 Clinic Tizanidine HCl 1 tab PO Q6H #360 tab 02/08/17 04/30/17 Clinic Venlafaxine HCl [Venlafaxine Hcl 1 cap PO QD #90 cap 02/08/17 Clinic Er] Gabapentin [Neurontin] 5 cap PO QHS #150 cap 02/20/17 04/30/17 Clinic Hydrocodone Bit/Acetaminophen 1 tab PO q4h prn #30 tab 02/20/17 04/30/17 Clinic [[place] 5-325 Tablet] Baclofen 2 tab PO QHS #180 tab 04/04/17 04/30/17 Clinic Ondansetron [Zofran Odt] 8 mg PO TID #9 tab 04/16/17 04/30/17 Clinic Albuterol Neb Soln 0.083% 1 vial INH Q4-6HRSPRN #120 vial 04/20/17 04/30/17 Clinic predniSONE Tab [Deltasone Tab] 0.5 - 1 tab PO QD #14 tab 04/25/17 Clinic Esomeprazole Magnesium [Nexium] 40 mg PO BEDTIME 04/30/17 04/30/17 History Omeprazole Magnesium [Prilosec Otc] 40 mg PO DAILY 04/30/17 04/30/17 History Allergies/Adverse Reactions: Allergies Allergy/AdvReac Type Severity Reaction Status Date / Time No Known Allergies Allergy Verified 04/30/17 15:32 Review of Systems - Review of Systems All Systems: Reviewed & No Additional Complaints Except as Stated (I did a 12 point review of systems and was negative other than that discussed in the history of present illness and that noted below.) - Constitutional Constitutional: REPORTS: Fever/Chills, Night Sweats, Diffuse Myalgias - Mouth/Throat Mouth/Throat Exam: REPORTS: Dysphagia - Respiratory Respiratory: REPORTS: Cough - Cardiovascular Cardiovascular: REPORTS: Negative System Review - Gastrointestinal Gastrointestinal / Abdominal: REPORTS: Nausea, Vomiting, Abdominal Pain - Genitourinary Genitourinary: REPORTS: Negative System Review - Gynecological : 7 Para: 2 Abortions.: 5 (spontaneous) - Musculoskeletal Musculoskeletal: REPORTS: Joint Pain - Feet, Other (Chronic joint pain. 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 Exam - Vitals Vital Signs: Vital Signs Temperature 97.2 F Temperature Source Temporal Artery Scan Pulse Rate [Pulse Oximeter 73 Right] Respiratory Rate 18 Blood Pressure [Left Arm] 151/88 Pulse Ox 95 Oxygen Delivery Method Room Air Height 5 ft 5 in Weight 196 lb 6.4 oz - General General Appearance: POSITIVE: No Acute Distress, Cooperative - Head Head Exam: POSITIVE: Normal Inspection, Normocephalic, Atraumatic - Eye Eye Exam: POSITIVE: No Scleral Icterus - ENT ENT Exam: POSITIVE: Mucous Membranes Dry - Neck Neck Exam: POSITIVE: Tenderness (On anterior cervical lymphadenopathy), Lymphadenopathy, No Thyromegaly - Respiratory Respiratory Exam: POSITIVE: Clear to Auscultation - Bilaterally, Breathing Non Labored, Normal to Percussion and Palpation - Cardiovascular Cardiovascular Exam: POSITIVE: RRR, No Murmur, No Clicks, No Gallops, No Rubs, No JVD - GI/Abdominal GI/Abdominal Exam: POSITIVE: Normal Bowel Sounds, Non Tender, Non Distended, Soft Additional GI/Abdominal Exam Details: Perhaps slight tenderness to palpation. - Rectal Rectal Exam: POSITIVE: Deferred - External Exam: POSITIVE: Deferred Exam: POSITIVE: Deferred - Extremities Extremities Exam: POSITIVE: No Clubbing Present, No Edema Present, No Cyanosis Present - Back Back Exam: POSITIVE: Normal Inspection, CVA Tenderness (L) - Neurological Neurological Exam: POSITIVE: Alert, Oriented x 3, No Facial Droop, Speech Intact / Clear, Moves All Extremities Equally - Psychiatric Psychiatric Exam: POSITIVE: Normal Affect, Normal Mood - Integumentary Integumentary Exam: POSITIVE: Normal Color, Warm, Dry, Intact - Central Line Examination Central Line Present on Admission: No Results - Labs CBC and BMP: 04/30/17 15:20 04/30/17 15:20 Labs - Last 24 Hours: Laboratory Results 04/30/17 04/30/17 Range/Units 15:20 16:42 WBC 14.78 H (4.8-10.8) 10^3/uL RBC 5.52 H (4.20-5.40) 10^6/uL Hgb 16.3 H (12.0-16.0) g/dL Hct 47.8 H (37.0-47.0) % MCV 86.6 (81-99) FL MCH 29.5 (27-31) PG MCHC 34.1 (33-37) g/dL RDW Std Deviation 47.3 (39-50) fL RDW Coeff of Deb 14.9 H (11.5-14.5) % Plt Count 360 H (140-350) 10*3/uL MPV 9.9 (7.4-12.2) FL Immature Gran % (Auto) 0.4 (0-5) % Neut % (Auto) 85.6 H (50-80) % Lymph % (Auto) 11.0 (10-50) % [place] % (Auto) 2.6 L (5-15) % Eos % (Auto) 0.1 (0-8) % Baso % (Auto) 0.3 (0-1) % Immature Gran # (Auto) 0.06 10*3/UL Neut # (Auto) 12.65 10*3/UL Lymph # (Auto) 1.62 10*3/uL Bent # (Auto) 0.39 (0.3-0.8) 10*3/UL Eos # (Auto) 0.02 10*3/UL Baso # (Auto) 0.04 10*3/UL WBC Morphology Comment Normal morphology (NORM) Plt Morphology Comment Normal morphology (NORM) RBC Morph Comment Normal morphology (NORM) Sodium 134 L (135-145) meq/L Potassium 4.5 (3.8-5.2) meq/L Chloride 97 L (98-112) meq/L Carbon Dioxide 24 (23-33) meq/L Anion Gap 13 (5-20) BUN 19 (7-22) mg/dL Creatinine 0.9 (0.50-1.20) mg/dL Estimated GFR > 60 (>60 ml/min/1.73m(2)) BUN/Creatinine Ratio 21.11 H (6-20) Glucose 353 H (78-110) mg/dL Calculated Osmolality 293.0 H (267-292) mOsm/kg Calcium 10.0 (8.7-10.7) mg/dL Magnesium 2.2 (1.6-2.4) mg/dL Total Bilirubin 0.9 (0.3-1.2) mg/dL AST 51 H (8-39) IU/L ALT 119 H (9-52) IU/L Alkaline Phosphatase 133 H (38-126) IU/L C-Reactive Protein 1.5 H (0.0-0.9) mg/dL Total Protein 7.7 (6.1-8.0) g/dL Albumin 4.4 (3.5-4.8) g/dL Globulin 3.4 (2.50-4.10) g/dL Albumin/Globulin Ratio 1.20 L (1.3-2.0) mg/g Amylase 80 (30-110) U/L Lipase 387 H (23-300) IU/L Ur Collection Type Voided specimen Urine Color Yellow Urine Clarity Clear (CLEAR) Urine pH 6.5 (5.0-8.5) Ur Specific Emily 1.010 (1.005-1.030) Urine Protein Negative (NEG) mg/dl Urine Glucose (UA) 500 (NEG) mg/dL Urine Ketones Negative (NEG) Urine Occult Blood Trace-intact H (NEG) Urine Nitrate Negative (NEG) Urine Bilirubin Negative (NEG) Urine Urobilinogen 0.2 (0.2) EU/dL Ur Leukocyte Esterase Negative (NEG) Urine RBC 1-4 (NONE) /hpf Urine WBC None (NONE) Ur Squamous Epith Cells None (NONE) Ur Renal Epithelial Cell None (NONE) Urine Crystals None Urine Bacteria None (NONE) Urine Casts None (NONE) Urine Mucus None (NONE) Urine Trichomonas None (NONE) Urine Yeast None (NONE) Ur Culture Indicated? Culture not set - EKG Data -: EKG Interpreted by Me Rate: Normal EKG Shows Normal: Sinus Rhythm Assessment and Plan - Patient Problems (1) Post-Streptococcal disorder Current Visit: Yes Status: Acute (2) Diabetes mellitus type II, controlled Current Visit: Yes Status: Acute Qualifiers: Diabetes mellitus complication status: without complication Diabetes mellitus long-term insulin use: without termite treater helper use Qualified Description : Controlled type 2 diabetes mellitus without complication, without long-term current use of insulin Qualifier Code(s): (E11.9) Type 2 diabetes mellitus without complications (3) Jrfafyb-Whjgp-Zysfa disease Current Visit: Yes Status: Acute (4) Asthma Current Visit: Yes Status: Acute Qualifiers: Asthma severity: unspecified severity Asthma complication type: uncomplicated Qualified Description: Uncomplicated asthma, unspecified asthma severity Qualifier Code(s): (J45.909) Unspecified asthma, uncomplicated (5) Obstructive sleep apnea Current Visit: Yes Status: Acute (6) GERD (gastroesophageal reflux disease) Current Visit: Yes Status: Acute Qualifiers: Esophagitis presence: without esophagitis Qualified Description: Gastroesophageal reflux disease without esophagitis Qualifier Code(s): ( K21.9) Gastro-esophageal reflux disease without esophagitis - Assessment / Plan Additional Assessment/Plan Details: Admit the patient. I think the patient has a poststreptococcal disease variant of some type. This may be evidenced by trace proteinuria and trace hematuria scattered on her last 2 urinalysis studies. She also has left kidney pain is not typical for her. Her joint pains of been exacerbated and she continues to have subjective fevers. Given her nausea and vomiting, I'm going to go ahead and place her on Rocephin IV for now. Hold off on steroids. Lungs at this time sound clear, but bright for albuterol on a when necessary basis. IV fluids. Check labs tomorrow. I will check streptococcal antibody panel for any evidence of mimicry from the streptococcal infection. I discussed above plan with the patient and she agreed.
[2017-04-30] MEDS: GABAPENTIN 300 MG CAPSULE PO SCH (20:26)
[2017-04-30] MEDS: BACLOFEN 20 MG TABLET PO SCH (20:27)
[2017-04-30] MEDS: ALBUTEROL SULFATE 8.5 GM HFA INHALER INH PRN (20:36)
[2017-04-30] MEDS ORDERED: Esomeprazole DR 20mg Capsule PO SCH (21:00)
[2017-04-30] MEDS: Sodium Chloride 0.9% 1,000 ML PRIMARY IV SCH (21:22)
[2017-04-30] MEDS: Pantoprazole Inj 40 MG in Normal Saline Flush 10 ML IVP SCH (21:24)
[2017-04-30] MEDS: cefTRIAXone Inj 2 GM in Sodium Chloride 0.9% 100 ML IV SCH (21:26)
[2017-04-30] MEDS ORDERED: diphenhydrAMINE 50 MG/1 ML VIAL IVP PRN (23:41)
[2017-05-01] MEDS: HYDROcodone-APAP 5 MG -325 MG TABLET PO PRN ×5 (00:06→19:17)
[2017-05-01] MEDS: MORPHINE SULFATE 4 MG/1 ML IVP PRN ×3 (04:18→22:22)
[2017-05-01] MEDS: Sodium Chloride 0.9% 1,000 ML PRIMARY IV SCH ×3 (04:19→23:56)
[2017-05-01 05:06] LABS: BASOPHILS # (AUTO) 0.06 10*3/UL; BASOPHILS % (AUTO) 0.4 % (0-1); EOSINOPHILS # (AUTO) 0.11 10*3/UL; EOSINOPHILS % (AUTO) 0.8 % (0-8); Hematocrit [HCT] 41.7 % (37.0-47.0); Hemoglobin [HGB] 13.9 g/dL (12.0-16.0); LYMPHOCYTES # (AUTO) 5.31 10*3/uL; MEAN CORPUSCULAR HEMOGLOBIN 29.9 PG (27-31); MEAN CORPUSCULAR HGB CONC 33.3 g/dL (33-37); MEAN CORPUSCULAR VOLUME 89.7 FL (81-99); MEAN PLATELET VOLUME 9.9 FL (7.4-12.2); MONOCYTES % (AUTO) 5.2 % (5-15); NEUTROPHILS # (AUTO) 7.17 10*3/UL; NEUTROPHILS % (AUTO) 53.6 % (50-80); RED BLOOD COUNT 4.65 10^6/uL (4.20-5.40)
[2017-05-01 05:20] LABS: BLOOD UREA NITROGEN 15 mg/dL (7-22); BUN/CREATININE RATIO 16.66 (6-20); SERUM ALBUMIN 3.3 g/dL (3.5-4.8)
[2017-05-01 05:30] LABS: PLATELET MORPHOLOGY COMMENT NORMAL MORPHOLOGY (NORM); RBC MORPHOLOGY COMMENT NORMAL MORPHOLOGY (NORM); WBC MORPHOLOGY COMMENT NORMAL MORPHOLOGY (NORM)
[2017-05-01] MEDS: ALBUTEROL SULFATE 8.5 GM HFA INHALER INH PRN ×2 (06:48→11:13)
[2017-05-01] MEDS ORDERED: VENLAFAXINE XR 75 MG CAP PO SCH (09:00)
[2017-05-01] MEDS ORDERED: PANTOPRAZOLE IV 40 MG VIAL ONE (09:04)
[2017-05-01] MEDS: Pantoprazole Inj 40 MG in Normal Saline Flush 10 ML IVP SCH ×2 (09:11→20:59)
[2017-05-01] MEDS: CHOLECALCIFEROL 1000 IU TABLET PO SCH (09:11)
[2017-05-01] MEDS: METOPROLOL SUCCINATE 25 MG SR 24H TABLET PO SCH (09:11)
[2017-05-01] MEDS ORDERED: Insulin Sliding Scale Protocol SUBCUT PRN (12:26)
[2017-05-01] MEDS ORDERED: DEXTROSE 31 GM GEL PO PRN (12:26)
[2017-05-01] MEDS ORDERED: DEXTROSE 50%-WATER SYRINGE 50 ML SYRINGE IVP PRN (12:26)
[2017-05-01] MEDS ORDERED: Glucagon Inj Vial 1 MG/ML VIAL IM PRN (12:26)
[2017-05-01] MEDS: NORMAL SALINE 10 ML SYRINGE FLUSH IVP PRN (15:10)
--- NOTE | 2017-05-01 15:13 | PDOC(PROG) ---
Date and Time of Service: 05/01/2017, 1513 Interval History: Still not feeling the best, but was able to hold some food down. Complains of abdominal pain, still has sore throat, and overall has generalized malaise. Patient states urine looked concentrated but not coffee-colored. Objective : Data - Labs CBC and BMP: 05/01/17 04:20 05/01/17 04:20 Labs - Last 24 Hours: Laboratory Results 05/01/17 Range/Units 04:20 WBC 13.41 H (4.8-10.8) 10^3/uL RBC 4.65 (4.20-5.40) 10^6/uL Hgb 13.9 (12.0-16.0) g/dL Hct 41.7 (37.0-47.0) % MCV 89.7 (81-99) FL MCH 29.9 (27-31) PG MCHC 33.3 (33-37) g/dL RDW Std Deviation 48.4 (39-50) fL RDW Coeff of Deb 14.9 H (11.5-14.5) % Plt Count 283 (140-350) 10*3/uL MPV 9.9 (7.4-12.2) FL Immature Gran % (Auto) 0.4 (0-5) % Neut % (Auto) 53.6 (50-80) % Lymph % (Auto) 39.6 (10-50) % [place] % (Auto) 5.2 (5-15) % Eos % (Auto) 0.8 (0-8) % Baso % (Auto) 0.4 (0-1) % Immature Gran # (Auto) 0.06 10*3/UL Neut # (Auto) 7.17 10*3/UL Lymph # (Auto) 5.31 10*3/uL [place] # (Auto) 0.70 (0.3-0.8) 10*3/UL Eos # (Auto) 0.11 10*3/UL Baso # (Auto) 0.06 10*3/UL WBC Morphology Comment Normal morphology (NORM) Plt Morphology Comment Normal morphology (NORM) RBC Morph Comment Normal morphology (NORM) Sodium 140 D (135-145) meq/L Potassium 4.5 (3.8-5.2) meq/L Chloride 102 (98-112) meq/L Carbon Dioxide 28 (23-33) meq/L Anion Gap 10 (5-20) BUN 15 (7-22) mg/dL Creatinine 0.9 (0.50-1.20) mg/dL Estimated GFR > 60 (>60 ml/min/1.73m(2)) BUN/Creatinine Ratio 16.66 (6-20) Glucose 149 H (78-110) mg/dL Calculated Osmolality 293.0 H (267-292) mOsm/kg Calcium 8.8 (8.7-10.7) mg/dL Total Bilirubin 0.7 (0.3-1.2) mg/dL AST 43 H (8-39) IU/L ALT 91 H (9-52) IU/L Alkaline Phosphatase 80 (38-126) IU/L Total Protein 6.0 L (6.1-8.0) g/dL Albumin 3.3 L (3.5-4.8) g/dL Globulin 2.7 (2.50-4.10) g/dL Albumin/Globulin Ratio 1.20 L (1.3-2.0) mg/g Objective : Exam - General General Appearance: No Acute Distress, Cooperative Additional General Exam Details: Vital Signs - Last Taken Temperature 97.6 F 05/01/17 11:40 Pulse Rate 72 05/01/17 11:40 Respiratory Rate 17 05/01/17 11:40 Blood Pressure 121/62 05/01/17 11:40 Pulse Ox 95 05/01/17 11:40 Appears ill but not toxic. On room air. - Head Head Exam: Normal Inspection, Normocephalic, Atraumatic - Eye Eye Exam: No Scleral Icterus - ENT ENT Exam: TM's Normal Bilaterally, Mucous Membranes Moist Additonal ENT Exam Details: Patient has normal tympanic membranes bilaterally with increased cerumen in the external auditory canals. Posterior pharynx is without markedly erythema, perhaps a little more swollen on the right than the left but no tonsillar abscess. No peritonsillar abscess. Patient has a very tender and soft right-sided mastoid. - Respiratory Respiratory Exam: Clear to Auscultation - Bilaterally, Breathing Non Labored - Cardiovascular Cardiovascular Exam: RRR, No Murmur, No Clicks, No Gallops, No Rubs, No JVD - GI/Abdominal GI/Abdominal Exam: Normal Bowel Sounds, Non Tender, Non Distended, Soft Additional GI/Abdominal Exam Details: Despite complaints of abdominal pain I cannot elicit tenderness with palpation. - Extremities Extremities Exam: No Clubbing Present, No Edema Present, No Cyanosis Present - Neurological Neurological Exam: Alert, Oriented x 3, No Facial Droop, Speech Intact / Clear, Moves All Extremities Equally Assessment and Plan - Patient Problems (1) Post-Streptococcal disorder Current Visit: Yes Status: Acute (2) Diabetes mellitus type II, controlled Current Visit: Yes Status: Acute Qualifiers: Diabetes mellitus complication status: without complication Diabetes mellitus correction insulin use: without watermaster use Qualified Description : Controlled type 2 diabetes mellitus without complication, without long-term current use of insulin Qualifier Code(s): (E11.9) Type 2 diabetes mellitus without complications (3) Dpoapbv-Ykurb-Cpkqj disease Current Visit: Yes Status: Acute (4) Asthma Current Visit: Yes Status: Acute Qualifiers: Asthma severity: unspecified severity Asthma complication type: uncomplicated Qualified Description: Uncomplicated asthma, unspecified asthma severity Qualifier Code(s): (J45.909) Unspecified asthma, uncomplicated (5) Obstructive sleep apnea Current Visit: Yes Status: Acute (6) GERD (gastroesophageal reflux disease) Current Visit: Yes Status: Acute Qualifiers: Esophagitis presence: without esophagitis Qualified Description: Gastroesophageal reflux disease without esophagitis Qualifier Code(s): ( K21.9) Gastro-esophageal reflux disease without esophagitis - Assessment / Plan Additional Assessment/Plan Details: Continue Rocephin. I'll go ahead and get a CT scan with contrast to determine whether or not there could be mastoiditis. If this is the case, he may need to consider consultation with infectious disease of some type. Continue pain medications, IV fluids for now, and supportive care.
[2017-05-01] MEDS: Insulin Lispro Flexpen 300 UNIT/3 ML INSULN.PEN SUBCUT SCH ×2 (16:14→21:00)
[2017-05-01] MEDS: GABAPENTIN 300 MG CAPSULE PO SCH (20:58)
[2017-05-01] MEDS: BACLOFEN 20 MG TABLET PO SCH (20:58)
[2017-05-01] MEDS: cefTRIAXone Inj 2 GM in Sodium Chloride 0.9% 100 ML IV SCH (21:00)
[2017-05-02] MEDS: MORPHINE SULFATE 4 MG/1 ML IVP PRN ×3 (03:03→17:07)
[2017-05-02] MEDS: Insulin Lispro Flexpen 300 UNIT/3 ML INSULN.PEN SUBCUT SCH ×4 (06:37→22:13)
[2017-05-02] MEDS: Sodium Chloride 0.9% 1,000 ML PRIMARY IV SCH ×2 (07:12→17:12)
[2017-05-02] MEDS: ONDANSETRON 4 MG/2 ML VIAL IVP PRN ×3 (08:46→21:37)
[2017-05-02] MEDS: METOPROLOL SUCCINATE 25 MG SR 24H TABLET PO SCH (09:10)
[2017-05-02] MEDS: Pantoprazole Inj 40 MG in Normal Saline Flush 10 ML IVP SCH (09:12)
[2017-05-02] MEDS: CHOLECALCIFEROL 1000 IU TABLET PO SCH (10:07)
[2017-05-02] MEDS: HYDROcodone-APAP 5 MG -325 MG TABLET PO PRN ×2 (10:07→19:42)
--- NOTE | 2017-05-02 10:14 | DI ---
CT SCAN OF THE NECK WITHOUT AND WITH IV CONTRAST, 05/01/2017 5:39 PM : Clinical History: History of throat. Right mastoid bone tenderness Previous Exam: None at this facility. Scans are obtained from C6 to the vertex with IV contrast. Sagittal and coronal images are generated. 65 ml of Isovue 300 was injected IV. The cervical vertebral bodies are of normal height and size. There is disc space narrowing from C4-5 through C6-7. The carotid and vertebral arteries are normal. There are no soft tissue masses on eithe r side. No lymphadenopathy is identified. The thyroid gland, the submandibular glands, and the paroti d glands are normal. There is no evidence of retropharyngeal soft tissue swelling or of a pharyngeal abscess. The 4th, 3rd, and lateral ventricles are of normal size, shape, position, and contour for the patient 's age. There are no abnormal areas of increased or decreased density. There are no abnormally enhanc ing areas present. There are no extracerebral mantles or shift of the midline structures. Bone window evaluation is normal. Both mastoid bones show normal aeration without evidence of acute or chronic m astoiditis. The external auditory canals, tympanic membranes, middle ear structures, in the internal auditory canals are normal bilaterally. The patient is status post previous sinus surgery with creati on of bilateral antral windows. There is a mucous retention cyst or polyp in the floor of the right m axillary sinus. The paranasal sinuses are otherwise unremarkable. READIN. Scans of the nasal and oropharyngeal regions show no evidence of a retropharyngeal or peritonsill ar abscess. The carotid and vertebral arteries are normal. 2. Scans of the brain without and with IV contrast are normal. 3. Scans of the mastoid and temporal bones bilaterally are normal. There is no evidence of mastoidit is.
[2017-05-02 10:16] LABS: ANTISTREP-O TITER 94 IU/mL (0 - 530)
[2017-05-02 11:00] LABS: BASOPHILS # (AUTO) 0.18 10*3/UL; BASOPHILS % (AUTO) 2.1 % (0-1); EOSINOPHILS # (AUTO) 0.47 10*3/UL; EOSINOPHILS % (AUTO) 5.5 % (0-8); Hematocrit [HCT] 43.3 % (37.0-47.0); Hemoglobin [HGB] 14.4 g/dL (12.0-16.0); LYMPHOCYTES # (AUTO) 3.52 10*3/uL; MEAN CORPUSCULAR HEMOGLOBIN 29.8 PG (27-31); MEAN CORPUSCULAR HGB CONC 33.3 g/dL (33-37); MEAN CORPUSCULAR VOLUME 89.5 FL (81-99); MEAN PLATELET VOLUME 9.4 FL (7.4-12.2); MONOCYTES # (AUTO) 0.68 10*3/UL (0.3-0.8); MONOCYTES % (AUTO) 7.9 % (5-15); NEUTROPHILS # (AUTO) 3.71 10*3/UL; NEUTROPHILS % (AUTO) 43.3 % (50-80); RED BLOOD COUNT 4.84 10^6/uL (4.20-5.40)
[2017-05-02 11:04] LABS: PLATELET MORPHOLOGY COMMENT NORMAL MORPHOLOGY (NORM); RBC MORPHOLOGY COMMENT NORMAL MORPHOLOGY (NORM); WBC MORPHOLOGY COMMENT NORMAL MORPHOLOGY (NORM)
[2017-05-02] MEDS ORDERED: Acetaminophen 1000mg Inj 1,000 MG in Premix 1 BAG IV ONE (11:08)
[2017-05-02 11:24] LABS: BLOOD UREA NITROGEN 11 mg/dL (7-22); BUN/CREATININE RATIO 15.71 (6-20); SERUM ALBUMIN 3.5 g/dL (3.5-4.8)
[2017-05-02 11:43] LABS: Erythrocyte Sediment Rate 7 MM/HR (0-20)
--- NOTE | 2017-05-02 12:14 | DI ---
CT ANGIOGRAM OF THE CHEST, 05/02/2017 10:26 AM : Clinical History: Severe lower rib cage pain. Previous Exam: 05/01/2010. Scans are performed from the base of the neck to the lower lung bases following IV administration of 65 mL of Isovue 300. Proprietary automated bolus tracking software was used to verify the timing of t he injection. The base of the neck and thoracic inlet are normal. There are no abnormal axillary, supraclavicular, mediastinal, or hilar nodes. The heart is normal. The pulmonary arteries are normal. There is no pulm onary arterial hypertension. There is no evidence of pulmonary embolism or pulmonary infarction. The lungs are clear and there are no pulmonary nodules or masses. There is fatty infiltration of the live r with hepatomegaly. Mild splenomegaly is present. Both adrenal glands and the limited views of the p ancreas are normal. No fractures of the ribs or sternum are seen although the lower ribs are not incl uded on this study. READIN. Normal CTA of the chest. There are no pulmonary emboli or pulmonary infarcts. 2. Hepatosplenomegaly. Fatty infiltration of the liver.
--- NOTE | 2017-05-02 17:54 | PDOC(PROG) ---
Date and Time of Service: 05/02/2017, 1750 Interval History: Still complains of abdominal pain. Right flank pain particularly worse today. No nausea or vomiting. Able to eat. Responded well to Tylenol IV today. I spoke with several physicians including the patient's primary care provider, and infectious disease, and overall it's felt that this could represent a post viral syndrome, and likely was not strep throat given cough. I stopped antibiotics at this point. No chest pain or shortness breath. CTA of the chest was negative for pulmonary emboli. One thought we also had was consideration for possible mesenteric ischemia or DVT. We will do some CTAs of the abdomen and pelvis to try and figure that out. Objective : Data - Labs CBC and BMP: 05/02/17 10:57 05/02/17 10:57 Labs - Last 24 Hours: Laboratory Results 05/02/17 Range/Units 10:57 WBC 8.58 (4.8-10.8) 10^3/uL RBC 4.84 (4.20-5.40) 10^6/uL Hgb 14.4 (12.0-16.0) g/dL Hct 43.3 (37.0-47.0) % MCV 89.5 (81-99) FL MCH 29.8 (27-31) PG MCHC 33.3 (33-37) g/dL RDW Std Deviation 49.6 (39-50) fL RDW Coeff of Deb 15.3 H (11.5-14.5) % Plt Count 280 (140-350) 10*3/uL MPV 9.4 (7.4-12.2) FL Immature Gran % (Auto) 0.2 (0-5) % Neut % (Auto) 43.3 L (50-80) % Lymph % (Auto) 41.0 (10-50) % [place] % (Auto) 7.9 (5-15) % Eos % (Auto) 5.5 (0-8) % Baso % (Auto) 2.1 H (0-1) % Immature Gran # (Auto) 0.02 10*3/UL Neut # (Auto) 3.71 10*3/UL Lymph # (Auto) 3.52 10*3/uL [place] # (Auto) 0.68 (0.3-0.8) 10*3/UL Eos # (Auto) 0.47 10*3/UL Baso # (Auto) 0.18 10*3/UL WBC Morphology Comment Normal morphology (NORM) Plt Morphology Comment Normal morphology (NORM) RBC Morph Comment Normal morphology (NORM) ESR 7 (0-20) MM/HR Sodium 138 (135-145) meq/L Potassium 4.2 (3.8-5.2) meq/L Chloride 103 (98-112) meq/L Carbon Dioxide 26 (23-33) meq/L Anion Gap 9 (5-20) BUN 11 (7-22) mg/dL Creatinine 0.7 (0.50-1.20) mg/dL Estimated GFR > 60 (>60 ml/min/1.73m(2)) BUN/Creatinine Ratio 15.71 (6-20) Glucose 136 H (78-110) mg/dL Calculated Osmolality 286.0 (267-292) mOsm/kg Calcium 9.2 (8.7-10.7) mg/dL Total Bilirubin 0.9 (0.3-1.2) mg/dL AST 93 H (8-39) IU/L ALT 117 H (9-52) IU/L Alkaline Phosphatase 90 (38-126) IU/L C-Reactive Protein 0.8 (0.0-0.9) mg/dL Total Protein 6.0 L (6.1-8.0) g/dL Albumin 3.5 (3.5-4.8) g/dL Globulin 2.5 (2.50-4.10) g/dL Albumin/Globulin Ratio 1.40 (1.3-2.0) mg/g Objective : Exam - General General Appearance: No Acute Distress, Cooperative Additional General Exam Details: Vital Signs - Last Taken Temperature 97.8 F 05/02/17 13:00 Pulse Rate 78 05/02/17 13:00 Respiratory Rate 20 05/02/17 13:00 Blood Pressure 120/63 05/02/17 13:00 Pulse Ox 95 05/02/17 13:00 - Eye Eye Exam: No Scleral Icterus - ENT ENT Exam: Mucous Membranes Moist - Respiratory Respiratory Exam: Clear to Auscultation - Bilaterally, Breathing Non Labored - Cardiovascular Cardiovascular Exam: RRR, No Murmur, No Clicks, No Gallops, No Rubs, No JVD - GI/Abdominal GI/Abdominal Exam: Normal Bowel Sounds, Non Distended, Soft Additional GI/Abdominal Exam Details: Feels tenderness along the right flank. - Extremities Extremities Exam: No Clubbing Present, No Edema Present, No Cyanosis Present - Neurological Neurological Exam: Alert, Oriented x 3, No Facial Droop, Speech Intact / Clear, Moves All Extremities Equally Assessment and Plan - Patient Problems (1) Post viral syndrome Current Visit: Yes Status: Acute (2) Diabetes mellitus type II, controlled Current Visit: Yes Status: Acute Qualifiers: Diabetes mellitus complication status: without complication Diabetes mellitus truck terminal manager insulin use: without truck terminal manager use Qualified Description : Controlled type 2 diabetes mellitus without complication, without long-term current use of insulin Qualifier Code(s): (E11.9) Type 2 diabetes mellitus without complications (3) Pgfdzoz-Lbeqx-Arjre disease Current Visit: Yes Status: Acute (4) Asthma Current Visit: Yes Status: Acute Qualifiers: Asthma severity: unspecified severity Asthma complication type: uncomplicated Qualified Description: Uncomplicated asthma, unspecified asthma severity Qualifier Code(s): (J45.909) Unspecified asthma, uncomplicated (5) Obstructive sleep apnea Current Visit: Yes Status: Acute (6) GERD (gastroesophageal reflux disease) Current Visit: Yes Status: Acute Qualifiers: Esophagitis presence: without esophagitis Qualified Description: Gastroesophageal reflux disease without esophagitis Qualifier Code(s): ( K21.9) Gastro-esophageal reflux disease without esophagitis (7) Post-Streptococcal disorder Current Visit: Yes Status: Acute - Assessment / Plan Additional Assessment/Plan Details: We'll get some ANCA studies in case this is some sort of variant vasculitis, although this would seem unlikely with a normal sedimentation rate and CRP. Stop antibiotics. Check for mesenteric ischemia. At this point, I think the Tylenol and the best response for pain, so may do that IV for some more doses. Check labs in the morning. Stop morphine. Protonix to 40 mg by mouth daily. Consider further therapy for post viral syndrome. I would like to see the CT scan for mesenteric ischemia first.
--- NOTE | 2017-05-02 18:40 | DI ---
CT ANGIOGRAM OF THE UPPER ABDOMEN AND PELVIS WITH EMPHASIS ON THE MESENTERIC ARTERIES, 05/02/2017 4:26 PM : Clinical History: Abdominal pain. Previous Exam: 04/30/2017. Scans are performed from the lower lung bases to the symphysis pubis following IV administration of 6 5 mL of Isovue 300. Proprietary automated bolus tracking software was not used to verify the timing o f the injection. Oral and rectal contrast were administered. Water was used for rectal contrast. Post contrast scans were performed during the early arterial phase and the portal venous phase. The lung bases are clear. There is hepatosplenomegaly with fatty infiltration of the liver. Multiple low-density lesions are present in the right lobe of the liver measuring up to 15 mm in diameter and these are consistent with benign cysts. The patient is status post cholecystectomy. Both adrenal glan ds and the pancreas are normal. Both kidneys are unremarkable and there is no hydronephrosis or hydro ureter. No ascites is present. There are no retrocrural or periaortic nodes or pelvic adenopathy. The re are no masses or free fluid collections in the pelvis. There is no adenopathy. The patient is stat us post hysterectomy and bilateral salpingo-oophorectomy. The aorta, both single renal arteries, the common iliac arteries, the internal and external iliac art eries, and the common femoral arteries are normal. This patient has an anatomic variant were there is a separate small left hepatic artery branch arising directly from the aorta. The celiac axis is righ t to the right hepatic artery branch in the splenic artery branch. These vessels are normal. The supe rior mesenteric artery has a small calcified plaque at its origin but there is no significant stenosi s noted. Branches off of the SMA appear normal. The SEAN is also normal. The splenic portal, SMV and m ain portal veins are normal. No varices are identified. The small and large bowel mucosa show a scarlett l enhancement throughout. The appendix is normal. READIN. There is no evidence of stenosis of either the celiac axis and its mesenteric branches or of the SMA and SEAN and their respective branches. No evidence of portal vein thrombosis or varices is identi fied. The large and small bowel mucosa enhance normally. 2. There is hepatosplenomegaly with fatty infiltration of the liver. Small benign cysts are present in the liver. 3. Scans of the abdomen and pelvis are otherwise normal.
[2017-05-02] MEDS: BACLOFEN 20 MG TABLET PO SCH (22:04)
[2017-05-02] MEDS: GABAPENTIN 300 MG CAPSULE PO SCH (22:04)
[2017-05-03] MEDS: Acetaminophen 1000mg Inj 1,000 MG in Premix 1 BAG IV PRN ×2 (00:36→09:32)
[2017-05-03 05:22] LABS: BASOPHILS # (AUTO) 0.11 10*3/UL; BASOPHILS % (AUTO) 1.5 % (0-1); EOSINOPHILS # (AUTO) 0.62 10*3/UL; EOSINOPHILS % (AUTO) 8.4 % (0-8); Hematocrit [HCT] 41.8 % (37.0-47.0); Hemoglobin [HGB] 13.9 g/dL (12.0-16.0); LYMPHOCYTES # (AUTO) 3.23 10*3/uL; MEAN CORPUSCULAR HEMOGLOBIN 29.6 PG (27-31); MEAN CORPUSCULAR HGB CONC 33.3 g/dL (33-37); MEAN CORPUSCULAR VOLUME 89.1 FL (81-99); MEAN PLATELET VOLUME 9.7 FL (7.4-12.2); MONOCYTES % (AUTO) 8.2 % (5-15); NEUTROPHILS # (AUTO) 2.79 10*3/UL; NEUTROPHILS % (AUTO) 37.9 % (50-80); RED BLOOD COUNT 4.69 10^6/uL (4.20-5.40)
[2017-05-03 05:35] LABS: BLOOD UREA NITROGEN 7 mg/dL (7-22); LIPASE 285 IU/L (23-300); SERUM ALBUMIN 3.3 g/dL (3.5-4.8)
[2017-05-03 05:36] LABS: PLATELET MORPHOLOGY COMMENT NORMAL MORPHOLOGY (NORM); RBC MORPHOLOGY COMMENT NORMAL MORPHOLOGY (NORM); WBC MORPHOLOGY COMMENT NORMAL MORPHOLOGY (NORM)
[2017-05-03] MEDS ORDERED: PANTOPRAZOLE 40 MG TABLET PO SCH (07:00)
[2017-05-03] MEDS: Insulin Lispro Flexpen 300 UNIT/3 ML INSULN.PEN SUBCUT SCH ×2 (07:57→11:39)
[2017-05-03] MEDS: CHOLECALCIFEROL 1000 IU TABLET PO SCH (07:59)
[2017-05-03] MEDS: METOPROLOL SUCCINATE 25 MG SR 24H TABLET PO SCH (08:00)
[2017-05-03] MEDS: NORMAL SALINE 10 ML SYRINGE FLUSH IVP PRN (09:31)
--- NOTE | 2017-05-03 12:31 | DCSUMMARY ---
Hospitalization Summary Admit Date: 04/30/17 Discharge Date: 05/03/17 Primary Diagnosis:: post viral syndrome Hospital Course: This very pleasant 56-year-old female who came in with severe abdominal pain, workup was negative for that abdominal pain including CT scans of the abdomen and pelvis outside of hepatomegaly that is consistent with her nonalcoholic steatohepatitis, and possible splenomegaly. We even did workup to look for mesenteric ischemia or mesenteric DVT, and no source negative studies as well. Initially we thought this could be some sort of post streptococcal disease, and did extensive workup including post streptococcal antibodies which were negative. CT scans of the neck for mastoiditis were negative, and the patient had a CT scan of the chest that was negative for pulmonary embolism. I think the patient is getting referred flank pain from hepatomegaly and splenomegaly in the setting of a post viral syndrome. The daughter, who is a nurse in [place], wondered about [place]le virus as a potential etiology so we do have some studies pending for that. It is not clear if that is the likely cause of this or not. However, I think there is little harm in doing the blood tests and treating empirically with antivirals for a week. We will also place the patient on steroids for the next 2 weeks and try and calm down and overactive immune system in the setting of a post viral syndrome. Asthma was initially exacerbated the cough resolved in the hospital, and the patient has not had any issues with asthma exacerbation since admission. The patient did have microscopic hematuria. I will defer to her primary care physician, Dr. Barkley as to further workup and any cystoscopy in the future. Today, the patient states that she's had no nausea or vomiting, still has some flank pain on the right, some abdominal pain. Overall, the pain appears to be better. The patient and her daughters are in agreement that she should go home. We will use Tylenol and anti-inflammatories as necessary for pain. Assessment and Plan: 1. As per discharge assessments noted 2. Disposition: Patient is discharged home. 3. Condition on discharge, stable and improved. 4. Diet: regular diet 5. Activities: resume normal activities 6. Follow-Up: 1. Dr. Barkley within 7 days or so 2. 7. Medications at the Time of Discharge: Home Medications Medication Instructions Recorded Confirmed Type Cranberry Pills 1 tab PO DAILY 10/05/09 04/30/17 History Cholecalciferol (Vitamin D3) 2 cap PO DAILY cap 09/30/13 04/30/17 History [Vitamin D3] Albuterol Sulfate [Proventil Hfa] 1 - 2 puff INH Q4-6H #3 puff 01/26/16 Clinic Metoprolol Succinate 1 tab PO QD #90 tab 01/26/16 04/30/17 Clinic Sumatriptan Succinate [Imitrex] 1 - 2 tab PO q 2 hours #36 tab 09/11/16 Clinic Iron 1 tab PO BID #60 tab 09/20/16 04/30/17 Clinic Blood Sugar Diagnostic [Freestyle 1 strip IN QD #50 strip 11/16/16 04/30/17 Clinic Lite Strips] Blood-Glucose Meter [Freestyle 1 each MC ONCE #1 unit 11/16/16 04/30/17 Clinic Lite Meter] Lancets [Freestyle Lancets] 1 each QD #50 each 11/16/16 04/30/17 Clinic Betamethasone/Propylene Glyc 45 gm TP PRN #1 each 01/08/17 04/30/17 Clinic [Betamethasone Dp Aug 0.05% Oin] Hydrochlorothiazide 1 tab PO QD #90 tab 02/08/17 04/30/17 Clinic Promethazine HCl 1 tab PO QD PRN #45 tab 02/08/17 04/30/17 Clinic Tizanidine HCl 1 tab PO Q6H #360 tab 02/08/17 04/30/17 Clinic Venlafaxine HCl [Venlafaxine HCl 1 cap PO QD #90 cap 02/08/17 Clinic ER] Gabapentin [Neurontin] 5 cap PO QHS #150 cap 02/20/17 04/30/17 Clinic Hydrocodone Bit/Acetaminophen 1 tab PO q4h prn #30 tab 02/20/17 04/30/17 Clinic [[place] 5-325 Tablet] Baclofen 2 tab PO QHS #180 tab 04/04/17 04/30/17 Clinic Ondansetron [Zofran Odt] 8 mg PO TID #9 tab 04/16/17 04/30/17 Clinic Albuterol Neb Soln 0.083% 1 vial INH Q4-6HRSPRN #120 vial 04/20/17 04/30/17 Clinic predniSONE Tab [Deltasone Tab] 0.5 - 1 tab PO QD #14 tab 04/25/17 Clinic Esomeprazole Magnesium [Nexium] 40 mg PO BEDTIME 04/30/17 04/30/17 History Omeprazole Magnesium [Prilosec Otc] 40 mg PO DAILY 04/30/17 04/30/17 History Prednisone 10 mg PO DAILY #30 tab 05/03/17 Rx Valacyclovir HCl [Valacyclovir] 1,000 mg PO DAILY #21 tab 05/03/17 Rx 8. Time, care, counseling and coordination of care for this discharge is greater than 30 minutes. Exam - Vitals Vital Signs: Vital Signs Temperature 97.5 F Temperature Source Temporal Artery Scan Pulse Rate [Apical] 78 Pulse Rate [Pulse Oximeter 87 Right] Pulse Rate 74 Respiratory Rate 18 Blood Pressure [Left Arm] 124/70 Blood Pressure 126/82 Pulse Ox 97 Oxygen Flow Rate 3 Oxygen Delivery Method Nasal Cannula Height 5 ft 5 in Weight 196 lb 6.4 oz - General General Appearance: POSITIVE: No Acute Distress, Cooperative - Eye Eye Exam: POSITIVE: No Scleral Icterus - ENT ENT Exam: POSITIVE: Mucous Membranes Moist - Respiratory Respiratory Exam: POSITIVE: Clear to Auscultation - Bilaterally, Breathing Non Labored - Cardiovascular Cardiovascular Exam: POSITIVE: RRR, No Murmur, No Clicks, No Gallops, No Rubs, No JVD - GI/Abdominal GI/Abdominal Exam: POSITIVE: Normal Bowel Sounds, Non Tender, Non Distended, Soft - Extremities Extremities Exam: POSITIVE: No Clubbing Present, No Edema Present, No Cyanosis Present - Neurological Neurological Exam: POSITIVE: Alert, Oriented x 3, No Facial Droop, Speech Intact / Clear, Moves All Extremities Equally Data Perinent Studies: Laboratory Results 04/30/17 04/30/17 05/01/17 Range/Units 15:20 16:42 04:20 WBC 14.78 H 13.41 H (4.8-10.8) 10^3/uL RBC 5.52 H 4.65 (4.20-5.40) 10^6/uL Hgb 16.3 H 13.9 (12.0-16.0) g/dL Hct 47.8 H 41.7 (37.0-47.0) % MCV 86.6 89.7 (81-99) FL MCH 29.5 29.9 (27-31) PG MCHC 34.1 33.3 (33-37) g/dL RDW Std Deviation 47.3 48.4 (39-50) fL RDW Coeff of Deb 14.9 H 14.9 H (11.5-14.5) % Plt Count 360 H 283 (140-350) 10*3/uL MPV 9.9 9.9 (7.4-12.2) FL Immature Gran % (Auto) 0.4 0.4 (0-5) % Neut % (Auto) 85.6 H 53.6 (50-80) % Lymph % (Auto) 11.0 39.6 (10-50) % [place] % (Auto) 2.6 L 5.2 (5-15) % Eos % (Auto) 0.1 0.8 (0-8) % Baso % (Auto) 0.3 0.4 (0-1) % Immature Gran # (Auto) 0.06 0.06 10*3/UL Neut # (Auto) 12.65 7.17 10*3/UL Lymph # (Auto) 1.62 5.31 10*3/uL [place] # (Auto) 0.39 0.70 (0.3-0.8) 10*3/UL Eos # (Auto) 0.02 0.11 10*3/UL Baso # (Auto) 0.04 0.06 10*3/UL WBC Morphology Comment Normal morphology Normal morphology (NORM) Plt Morphology Comment Normal morphology Normal morphology (NORM) RBC Morph Comment Normal morphology Normal morphology (NORM) ESR 11 (0-20) MM/HR Sodium 134 L 140 D (135-145) meq/L Potassium 4.5 4.5 (3.8-5.2) meq/L Chloride 97 L 102 (98-112) meq/L Carbon Dioxide 24 28 (23-33) meq/L Anion Gap 13 10 (5-20) BUN 19 15 (7-22) mg/dL Creatinine 0.9 0.9 (0.50-1.20) mg/dL Estimated GFR > 60 > 60 (>60 ml/min/1.73m(2)) BUN/Creatinine Ratio 21.11 H 16.66 (6-20) Glucose 353 H 149 H (78-110) mg/dL Calculated Osmolality 293.0 H 293.0 H (267-292) mOsm/kg Calcium 10.0 8.8 (8.7-10.7) mg/dL Magnesium 2.2 (1.6-2.4) mg/dL Total Bilirubin 0.9 0.7 (0.3-1.2) mg/dL AST 51 H 43 H (8-39) IU/L ALT 119 H 91 H (9-52) IU/L Alkaline Phosphatase 133 H 80 (38-126) IU/L C-Reactive Protein < 0.5 (0.0-0.9) mg/dL Total Protein 7.7 6.0 L (6.1-8.0) g/dL Albumin 4.4 3.3 L (3.5-4.8) g/dL Globulin 3.4 2.7 (2.50-4.10) g/dL Albumin/Globulin Ratio 1.20 L 1.20 L (1.3-2.0) mg/g Amylase 80 (30-110) U/L Lipase 387 H (23-300) IU/L Ur Collection Type Voided specimen Urine Color Yellow Urine Clarity Clear (CLEAR) Urine pH 6.5 (5.0-8.5) Ur Specific [place] 1.010 (1.005-1.030) Urine Protein Negative (NEG) mg/dl Urine Glucose (UA) 500 (NEG) mg/dL Urine Ketones Negative (NEG) Urine Occult Blood Trace-intact H (NEG) Urine Nitrate Negative (NEG) Urine Bilirubin Negative (NEG) Urine Urobilinogen 0.2 (0.2) EU/dL Ur Leukocyte Esterase Negative (NEG) Urine RBC 1-4 (NONE) /hpf Urine WBC None (NONE) Ur Squamous Epith Cells None (NONE) Ur Renal Epithelial Cell None (NONE) Urine Crystals None Urine Bacteria None (NONE) Urine Casts None (NONE) Urine Mucus None (NONE) Urine Trichomonas None (NONE) Urine Yeast None (NONE) Ur Culture Indicated? Culture not set Anti-Streptolysin Titr 94 (0 - 530) IU/mL Anti-DNase B (Strep) 184 (0 - 300) U/mL 05/02/17 05/03/17 Range/Units 10:57 04:54 WBC 8.58 7.36 (4.8-10.8) 10^3/uL RBC 4.84 4.69 (4.20-5.40) 10^6/uL Hgb 14.4 13.9 (12.0-16.0) g/dL Hct 43.3 41.8 (37.0-47.0) % MCV 89.5 89.1 (81-99) FL MCH 29.8 29.6 (27-31) PG MCHC 33.3 33.3 (33-37) g/dL RDW Std Deviation 49.6 49.3 (39-50) fL RDW Coeff of Deb 15.3 H 15.2 H (11.5-14.5) % Plt Count 280 250 (140-350) 10*3/uL MPV 9.4 9.7 (7.4-12.2) FL Immature Gran % (Auto) 0.2 0.1 (0-5) % Neut % (Auto) 43.3 L 37.9 L (50-80) % Lymph % (Auto) 41.0 43.9 (10-50) % [place] % (Auto) 7.9 8.2 (5-15) % Eos % (Auto) 5.5 8.4 H (0-8) % Baso % (Auto) 2.1 H 1.5 H (0-1) % Immature Gran # (Auto) 0.02 0.01 10*3/UL Neut # (Auto) 3.71 2.79 10*3/UL Lymph # (Auto) 3.52 3.23 10*3/uL [place] # (Auto) 0.68 0.60 (0.3-0.8) 10*3/UL Eos # (Auto) 0.47 0.62 10*3/UL Baso # (Auto) 0.18 0.11 10*3/UL WBC Morphology Comment Normal morphology Normal morphology (NORM) Plt Morphology Comment Normal morphology Normal morphology (NORM) RBC Morph Comment Normal morphology Normal morphology (NORM) ESR 7 (0-20) MM/HR Sodium 138 139 (135-145) meq/L Potassium 4.2 3.9 (3.8-5.2) meq/L Chloride 103 103 (98-112) meq/L Carbon Dioxide 26 27 (23-33) meq/L Anion Gap 9 9 (5-20) BUN 11 7 (7-22) mg/dL Creatinine 0.7 0.7 (0.50-1.20) mg/dL Estimated GFR > 60 > 60 (>60 ml/min/1.73m(2)) BUN/Creatinine Ratio 15.71 10.00 (6-20) Glucose 136 H 132 H (78-110) mg/dL Calculated Osmolality 286.0 287.0 (267-292) mOsm/kg Calcium 9.2 9.1 (8.7-10.7) mg/dL Magnesium (1.6-2.4) mg/dL Total Bilirubin 0.9 0.9 (0.3-1.2) mg/dL AST 93 H 72 H (8-39) IU/L ALT 117 H 99 H (9-52) IU/L Alkaline Phosphatase 90 82 (38-126) IU/L C-Reactive Protein 0.8 (0.0-0.9) mg/dL Total Protein 6.0 L 5.8 L (6.1-8.0) g/dL Albumin 3.5 3.3 L (3.5-4.8) g/dL Globulin 2.5 2.5 (2.50-4.10) g/dL Albumin/Globulin Ratio 1.40 1.30 (1.3-2.0) mg/g Amylase (30-110) U/L Lipase 285 (23-300) IU/L Ur Collection Type Urine Color Urine Clarity (CLEAR) Urine pH (5.0-8.5) Ur Specific [place] (1.005-1.030) Urine Protein (NEG) mg/dl Urine Glucose (UA) (NEG) mg/dL Urine Ketones (NEG) Urine Occult Blood (NEG) Urine Nitrate (NEG) Urine Bilirubin (NEG) Urine Urobilinogen (0.2) EU/dL Ur Leukocyte Esterase (NEG) Urine RBC (NONE) /hpf Urine WBC (NONE) Ur Squamous Epith Cells (NONE) Ur Renal Epithelial Cell (NONE) Urine Crystals Urine Bacteria (NONE) Urine Casts (NONE) Urine Mucus (NONE) Urine Trichomonas (NONE) Urine Yeast (NONE) Ur Culture Indicated? Anti-Streptolysin Titr (0 - 530) IU/mL Anti-DNase B (Strep) (0 - 300) U/mL Patient Problems - Patient Problem List (1) Post viral syndrome Current Visit: Yes Status: Acute (2) Diabetes mellitus type II, controlled Current Visit: Yes Status: Acute Qualifiers: Diabetes mellitus complication status: without complication Diabetes mellitus long-term insulin use: without intermediate designer use Qualified Description : Controlled type 2 diabetes mellitus without complication, without long-term current use of insulin Qualifier Code(s): (E11.9) Type 2 diabetes mellitus without complications (3) Kgtxkvm-Zblbo-Rxefc disease Current Visit: Yes Status: Acute (4) Asthma Current Visit: Yes Status: Acute Qualifiers: Asthma severity: unspecified severity Asthma complication type: uncomplicated Qualified Description: Uncomplicated asthma, unspecified asthma severity Qualifier Code(s): (J45.909) Unspecified asthma, uncomplicated (5) Obstructive sleep apnea Current Visit: Yes Status: Acute (6) GERD (gastroesophageal reflux disease) Current Visit: Yes Status: Acute Qualifiers: Esophagitis presence: without esophagitis Qualified Description: Gastroesophageal reflux disease without esophagitis Qualifier Code(s): ( K21.9) Gastro-esophageal reflux disease without esophagitis (7) Post-Streptococcal disorder Current Visit: Yes Status: Acute
[2017-05-03 13:16] VITALS: RESP 20; TEMP 97.2
[2017-05-03 14:05] LABS: MYELOPEROXIDASE AB <0.2 U (()); PROTEINASE-3 ANTIBODY <0.2 U (())
== END 2017-05-03 13:56 | disposition home or self-care (01) | DRG 866 ==
LOC: ER 14:45 → MED/SURG 18:01
PROVIDERS: ADMIT Family Medicine; ATTEND Family Medicine